=== PATIENT | male | born 1990 ===

== ENCOUNTER 2018-11-26 21:45 | Emergency (ER) | payer SELFPAY ==
[2018-11-26 21:54] VITALS: BMI 21.2
--- NOTE | 2018-11-26 22:42 | ED PDOC ---
Arrival/HPI - General Historian: EMS - History of Present Illness Narrative History of Present Illness (Text): 11/26/18 22:30 40 y/o male with unknown PMH presents to the ED biba for public intoxication. Per EMS, patient was found sleeping in the street in [place]. Arousable to painful stimuli. Denies any physical complaints. HPI and ROS limited secondary to intoxicated state. <Kriss Davis - Last Filed: 11/27/18 00:51> <Jorge Luis Potter - Last Filed: 11/27/18 06:07> - General Chief Complaint: Alcohol Ingestion Time Seen by Provider: 11/26/18 21:46 Past Medical History - Provider Review Nursing Documentation Reviewed: Yes - Psychiatric Hx Substance Use: No <Kriss Davis - Last Filed: 11/27/18 00:51> Family/Social History - Physician Review Nursing Documentation Reviewed: Yes Family/Social History: No Known Family HX Smoking Status: Never Smoked Hx Alcohol Use: Yes Hx Substance Use: No <Kriss Davis - Last Filed: 11/27/18 00:51> Allergies/Home Meds <Kriss Davis - Last Filed: 11/27/18 00:51> <Jorge Luis Potter - Last Filed: 11/27/18 06:07> Allergies/Adverse Reactions: Allergies No Known Allergies Allergy (Verified 11/26/18 21:54) Review of Systems - Review of Systems Systems not reviewed;Unavailable: Intoxicated <Kriss Davis - Last Filed: 11/27/18 00:51> Physical Exam Vital Signs Reviewed: Yes Temperature: Afebrile Blood Pressure: Normal Pulse: Regular Respiratory Rate: Normal Appearance: Positive for: Well-Appearing, Non-Toxic, Comfortable, Unkept Pain Distress: None Mental Status: Positive for: Alert and Oriented X 3 Finger Stick Blood Glucose: 115 - Systems Exam Head: Present: Atraumatic, Normocephalic. No: Abrasion, Laceration Pupils: Present: PERRL Extroacular Muscles: Present: EOMI Conjunctiva: Present: Normal Mouth: Present: Moist Mucous Membranes Neck: Present: Normal Range of Motion. No: Meningeal Signs, MIDLINE TENDERNESS, Paraspinal Tenderness Respiratory/Chest: Present: Clear to Auscultation, Good Air Exchange. No: Respiratory Distress, Accessory Muscle Use Cardiovascular: Present: Regular Rate and Rhythm, Normal S1, S2, Peripheal Pulses Present Abdomen: Present: Normal Bowel Sounds. No: Tenderness, Distention, Peritoneal Signs Back: Present: Normal Inspection. No: Midline Tenderness, Paraspinal Tenderness Upper Extremity: Present: Normal Inspection, Normal ROM, NORMAL PULSES, Neurovascularly Intact, Capillary Refill < 2s. No: Cyanosis, Edema, Temperature Abnormalties Lower Extremity: Present: Normal ROM Neurological: Present: Other (Intoxicated, arousable to pain) Skin: Present: Warm, Dry, Normal Color. No: Rashes Psychiatric: Present: Intoxicated <Kriss Davis - Last Filed: 11/27/18 00:51> Medical Decision Making ED Course and Treatment: 11/26/18 22:29 Initial Plan: * Fingerstick * CBC, CMP * Coags * Troponin * Alcohol level * Observe * Reassess and Disposition 0100 Bloodwork reviewed, unremarkable. Alcohol level 341. On reassessment, patient is more alert, arousable to voice. 0200 Patient care endorsed to Dr. Potter, pending clinical sobriety, reassessment and disposition. Pt resting comfortably in stretcher with stable vitals at this time. - Lab Interpretations Narrative Lab Interpretation (Text): 11/27/18 00:51 11/26/18 23:40 11/26/18 23:40 Lab Results 11/26/18 23:40: Acetaminophen < 10.0 L 11/26/18 23:40: Alcohol, Quantitative 341 H* 11/26/18 23:40: Sodium 148, Potassium 3.9, Chloride 113 H, Carbon Dioxide 23, Anion Gap 16, BUN 9, Creatinine 0.6 L, Est GFR ( Amer) > 60, Est GFR (Non-Af Amer) > 60, Random Glucose 115 H, Calcium 8.2 L, Total Bilirubin 0.2, AST 57, ALT 59 H, Alkaline Phosphatase 96, Troponin I < 0.01, Total Protein 7.2, Albumin 4.1, Globulin 3.2, Albumin/Globulin Ratio 1.3 11/26/18 23:40: PT 11.2, INR 1.01, APTT 33.1 11/26/18 23:40: WBC 4.7, RBC 4.21, Hgb 12.5 L, Hct 39.3 L, MCV 93.3, MCH 29.7, MCHC 31.8, RDW 15.1 H, Plt Count 278, MPV 9.6, Neut % (Auto) 54.7, Lymph % (Auto) 32.7, [place] % (Auto) 9.9 H, Eos % (Auto) 2.5, Baso % (Auto) 0.2, Lymph # (Auto) 1.6, [place] # (Auto) 0.5, Eos # (Auto) 0.1, Baso # (Auto) 0.01, Absolute Neuts (auto) 2.59 11/26/18 22:16: POC Glucose (mg/dL) 115 H I have reviewed the lab results: Yes - Transfer of Care Patient signed out to Dr:: Abbey Other: Clinical Sobriety, Reassessment and Disposition <Kriss Davis - Last Filed: 11/27/18 00:51> ED Course and Treatment: 11/27/18 06:05 Patient is awake alert sober ambulatory in ED with steady gait. <Jorge Luis Potter - Last Filed: 11/27/18 06:07> - PA / TEACHERS' ASSISTANT / Resident Statement ERICH has reviewed & agrees with the documentation as recorded. ERICH has examined the patient and agrees with the treatment plan. <Jorge Luis Potter - Last Filed: 11/27/18 06:07> Disposition/Present on Arrival - Present on Arrival Any Indicators Present on Arrival: No History of DVT/PE: No History of Uncontrolled Diabetes: No Urinary Catheter: No History of Decub. Ulcer: No History Surgical Site Infection Following: None - Disposition Have Diagnosis and Disposition been Completed?: No Disposition Time: 02:00 <Kriss Davis - Last Filed: 11/27/18 00:51> - Present on Arrival Any Indicators Present on Arrival: Yes - Disposition Have Diagnosis and Disposition been Completed?: Yes Disposition Time: 06:06 Patient Plan: Discharge <Jorge Luis Potter - Last Filed: 11/27/18 06:07> - Disposition Diagnosis: Alcohol intoxication Disposition: HOME/ ROUTINE Patient Problems: Current Active Problems Problem Status Onset Alcohol intoxication Acute Condition: STABLE Discharge Instructions (ExitCare): Alcohol Abuse and Alcoholism (DC) Referrals: Alcoholics Anonymous [Outside] - Follow up with primary Forms: Training [employer] (Greek)
[2018-11-27 00:13] LABS: BASO # 0.01 K/mm3 (0.0-2.0); BASO % 0.2 % (0.0-3.0); EOS # 0.1 (0.0-0.7); EOS % 2.5 % (1.5-5.0); HEMOGLOBIN 12.5 g/dL (14.0-18.0); LYMPH # 1.6 (1.2-3.4); LYMPH % 32.7 % (22.0-35.0); MEAN CELL VOLUME 93.3 fl (80.0-105.0); MEAN CORPUSCULAR HEMOGLOBIN 29.7 pg (25.0-35.0); MEAN CORPUSCULAR HGB CONC 31.8 g/dl (31.0-37.0); MEAN PLATELET VOLUME 9.6 fl (7.0-11.0); MONO # 0.5 (0.1-0.6); MONO % 9.9 % (1.0-6.0); RBC 4.21 10^6/uL (3.5-6.1); RED CELL DISTRIBUTION WIDTH 15.1 % (11.5-14.5); WHITE BLOOD COUNT 4.7 10^3/uL (4.5-11.0)
[2018-11-27 00:25] LABS: INR 1.01; PARTIAL THROMBOPLASTIN TIME 33.1 Seconds (26.9-38.3); PROTHROMBIN TIME 11.2 SECONDS (9.4-12.5)
[2018-11-27 00:27] LABS: ALB/GLOB RATIO 1.3 (1.1-1.8); ALBUMIN 4.1 g/dL (3.0-4.8); ALT/SGPT 59 U/L (7-56); AST/SGOT 57 U/L (17-59); BLOOD UREA NITROGEN 9 mg/dL (7-21); CALCIUM 8.2 mg/dL (8.4-10.5); GFR NON-AFRICAN AMERICAN > 60
[2018-11-27 00:39] LABS: TROPONIN I < 0.01 ng/mL
[2018-11-27 04:11] VITALS: BP 113/68; PULSE 82; RESP 13; O2SAT 97
== END 2018-11-27 06:10 | disposition home or self-care (01) ==
LOC: ED 21:45 → EDBD 21:45 → ED 11-27 06:10
DX: F10.129 Alcohol abuse with intoxication, unspecified (principal); Y90.8 Blood alcohol level of 240 mg/100 ml or more
CPT/HCPCS: 80053; 82948; 84484; 85025; 85610; 85730; 99282; G0480